=== PATIENT | male | born 1945 | race Caucasian/White ===

== ENCOUNTER 2017-04-25 12:18 | Day surgery (SDC) | payer MEDICARE, BC ==
[2017-04-25] MEDS ORDERED: ASPIRIN/SOD BICARB/CITRIC ACID 324MG TAB EFF ONE (13:37)
[2017-04-25] MEDS ORDERED: LIDOCAINE HCL/PF 1% 10 MG/ML 5ML VIAL ONE (13:41)
[2017-04-25] MEDS ORDERED: MELATONIN (13:42)
[2017-04-25] MEDS ORDERED: AMLO2.5T45 PO (13:42)
[2017-04-25] MEDS ORDERED: ASPI-1159 PO (13:42)
[2017-04-25] MEDS ORDERED: ZINC50TA2 PO (13:42)
[2017-04-25] MEDS ORDERED: CHOL400C8 PO (13:42)
[2017-04-25] MEDS ORDERED: SITA1TBM7 PO (13:42)
[2017-04-25] MEDS ORDERED: BENA20TA3 PO (13:42)
[2017-04-25] MEDS ORDERED: CLOP75TA16 PO (13:42)
[2017-04-25] MEDS ORDERED: FAMO40TA70 PO (13:42)
[2017-04-25] MEDS ORDERED: UBID50TA3 PO (13:42)
[2017-04-25] MEDS ORDERED: TAMS0.4C31 PO (13:42)
[2017-04-25] MEDS ORDERED: EVOL140S SQ (13:42)
[2017-04-25] MEDS ORDERED: ATEN50TA PO (13:42)
[2017-04-25] MEDS ORDERED: IODIXANOL 320MG/ML 100 ML BOTTLE IV ONE (13:50)
[2017-04-25] MEDS ORDERED: MIDAZOLAM HCL 2 MG/2 ML VIAL ONE (13:56)
[2017-04-25] MEDS ORDERED: FENTANYL CITRATE/PF 50MCG/ML 2ML VIAL ONE (13:57)
[2017-04-25] MEDS ORDERED: PROTAMINE SULFATE 10MG/ML VIAL 5ML IV ONE (14:35)
[2017-04-25] MEDS ORDERED: HEPARIN SODIUM 1,000 UNIT/1ML VIAL IV ONE (16:01)
[2017-04-25] MEDS ORDERED: NITROGLYCERIN 50MCG/ML 10ML VIAL (CATH LAB) IV ONE (16:02)
[2017-04-25] MEDS ORDERED: NICARDIPINE 100MCG/ML 10ML VIAL (CATH LAB) IV ONE (16:02)
[2017-04-25] MEDS ORDERED: ONDANSETRON HCL 4MG/2ML VIAL IV PRN (17:30)
[2017-04-25] MEDS ORDERED: MORPHINE SULFATE 4 MG/ML CPJ (NOT FOR IM USE) IV PRN (17:30)
[2017-04-25] MEDS ORDERED: ACETAMINOPHEN 325MG TABLET PO PRN (17:30)
[2017-04-25] MEDS ORDERED: ATROPINE SULFATE 1MG/10ML SYR IV PRN (17:30)
== END 2017-04-25 15:00 | disposition home or self-care (01) ==
LOC: CCL 12:18
PROVIDERS: ATTEND Specialist
DX: I25.10 Atherosclerotic heart disease of native coronary artery without angina pectoris (principal); Z95.5 Presence of coronary angioplasty implant and graft; Z98.42 Cataract extraction status, left eye; Z98.41 Cataract extraction status, right eye; Z86.018 Personal history of other benign neoplasm
CPT/HCPCS: 82962; 85347; 93458; 93571; C1769; C1887; C1893; J1644; J2250; J2720; J3010; J3490; Q9967

== ENCOUNTER → 2022-05-18 | Day surgery (SDC) | payer MEDICARE, BC ==
[~2022-05-18] MED LIST: ACETAMINOPHEN 325MG TABLET PO PRN; AMLO2.5T45 PO; ASPI-1497 PO; ASPIRIN/SOD BICARB/CITRIC ACID 324MG TAB EFF ONE; ATEN50TA PO; BENA-8 PO; CHOL400C8 PO; CLOP-31 PO; DOCU100T28 PO; EVOL140S2 SQ; FAMO40TA70 PO; FENTANYL CITRATE/PF 50MCG/ML 2ML VIAL ONE; FINA5TAB11 PO; HEPARIN 1000 UNITS/ML 10ML ONE; INSU100I20 SQ; IODIXANOL 320MG/ML 100 ML BOTTLE IV ONE; LIDOCAINE HCL/PF 1% 10 MG/ML 5ML VIAL ONE; MELATONIN; MELO-104 PO; MIDAZOLAM HCL 2 MG/2 ML VIAL ONE; MORPHINE SULFATE 2 MG/ML CPJ (NOT FOR IM USE) IV PRN; NICARDIPINE 100MCG/ML 10ML VIAL (CATH LAB) IV ONE; NITROGLYCERIN 50MCG/ML 10ML VIAL (CATH LAB) IV ONE; ONDANSETRON HCL 4MG/2ML INJ IV PRN; SEMA3TAB4; SITA1TBM7 PO; TAMS0.4C31 PO; UBID50TA3 PO; ZINC50TA2 PO
== END | disposition home or self-care (01) ==
LOC: CCL 08:27
PROVIDERS: ATTEND Specialist
DX: I25.10 Atherosclerotic heart disease of native coronary artery without angina pectoris (principal); Z79.82 Long term (current) use of aspirin; Z79.4 Long term (current) use of insulin; Z79.899 Other long term (current) drug therapy; Z98.890 Other specified postprocedural states; Z88.8 Allergy status to other drugs, medicaments and biological substances
CPT/HCPCS: 93458; J1644; J2250; J3010; J3490; Q9967; Z7610; 99152; G0500